=== PATIENT | female | born 1950 | race Caucasian/White ===

== ENCOUNTER 2024-11-23 12:54 | Emergency (ER) | payer MEDICARE, OTHER ==
[2024-11-23] MEDS ORDERED: Sodium Chloride 0.9% 10 ML Syringe FLUSH PRN (13:11)
[2024-11-23 14:25] LABS: HEMATOCRIT 46.3 % (37.0-47.0); HEMOGLOBIN 15.7 g/dL (12.0-16.0); MEAN CORPUSCULAR HEMOGLOBIN 30.1 pg (27.0-34.0); MEAN CORPUSCULAR HGB CONC 33.9 g/dL (33.0-35.0); MEAN CORPUSCULAR VOLUME 88.9 fL (80-100); PLATELET COUNT,PLT 295 10^3/uL (150-450); RED BLOOD CELL COUNT 5.21 10^6/uL (4.2-5.4); WHITE BLOOD CELL COUNT,WBC 6.4 10^3/uL (5.0-10.0)
[2024-11-23] MEDS: cloNIDine 0.1 MG Tab PO ONE (14:26)
[2024-11-23 14:44] LABS: ANION GAP 15.2 mEq/L (7-13); BLOOD UREA NITROGEN,BUN 10 mg/dL (7-18); CALCIUM 10.2 mg/dL (8.5-10.1); CARBON DIOXIDE,CO2 29 mmol/L (21-32); CHLORIDE,CL 95 mmol/L (98-107); CREATININE 0.81 mg/dL (0.55-1.02); GLUCOSE RANDOM 94 mg/dL (70-99); POTASSIUM,K 4.2 mmol/L (3.5-5.1); SODIUM,NA 135 mmol/L (136-145)
[2024-11-23 14:47] LABS: ESTIMATED GFR 77 mL/min (>=60)
[2024-11-23 14:48] LABS: BASOPHILS PERCENT AUTO 0.7 % (0.0-1.0); EOSINOPHILS PERCENT AUTO 0.7 % (1.0-3.0); LYMPHOCYTES PERCENT AUTO 18.6 % (20.5-50.1); MONOCYTES PERCENT AUTO 8.8 % (2-8); NEUTROPHILS PERCENT AUTO 71.2 % (42.2-75.2)
== END 2024-11-23 16:59 | disposition home or self-care (01) ==
LOC: DL.ED 12:54
DX: I11.0 Hypertensive heart disease with heart failure (principal); I50.9 Heart failure, unspecified; Z88.1 Allergy status to other antibiotic agents; Z79.899 Other long term (current) drug therapy
CPT/HCPCS: 36415; 70450; 80048; 82947; 85025; 93005; 99284; A9270